=== PATIENT | male | born 1945 | race Caucasian/White ===

== ENCOUNTER → 2018-11-27 | Outpatient (CLI) | payer MEDICARE, BC ==
[~2018-11-27] MED LIST: ASPI81CH PO; ATOR10 PO; Alprazolam0.5 MG PO; ESOM20; METPHE18ER PO; METPRE4DP PO; Percocet 5-3251 EACH PO; Robaxin500 MG PO
[2018-12-01 13:07] LABS: M-SPIKE, % Not Observed % (Not Observed); PROTEIN,TOTAL,URINE 7.5 mg/dL (Not Estab.)
== END | disposition home or self-care (01) ==
LOC: OLS 09:45 → LAB SHORT 09:45
PROVIDERS: Internal Medicine
DX: Z00.01 Encounter for general adult medical examination with abnormal findings (principal); R53.81 Other malaise
CPT/HCPCS: 81050; 84166; 86335

== ENCOUNTER 2019-02-11 07:41 | Day surgery (SDC) | payer MEDICARE, BC ==
[~2019-02-11] VITALS: Ht 175.3 cm; Wt 77.7 kg
[~2019-02-11 07:41] MED LIST changes: +ACET500 PO; +ALPR1 PO; -Alprazolam0.5 MG PO; +ESOMEPRAZOLE MA40 MG PO; +METO25ER PO; +NAPR220 PO; +NITR.4SL SL; +VITAMIN D-32000 UNIT PO; +VOLTAREN100 GM TOP
--- NOTE | 2019-02-11 11:14 | NUR ---
TR BAND DEFLATED, REMAINS ON RIGHT WRIST NO AIR IN. WILL MONITOR SITE FOR BLEEDING. PT DENIES PAIN OR SOB, DENIES ANY NEEDS AT THIS TIME. AT BEDSIDE. VSS. CALL LIGHT IN REACH.
--- NOTE | 2019-02-11 11:37 | NUR ---
TR BAND REMAINS ON RIGHT WRIST, NO AIR IN. PT AMBULATES TO RESTROOM WITH STEADY GAIT, UNMEASURED VOID. GETS DRESSED WITH ASSISTANCE FROM . EVERETT GODDARD RN REVIEWING DISCHARGE INSTRUCTIONS WITH PT AND HIS . RADIAL SITE APPEARS TO BE WNL.
--- NOTE | 2019-02-11 11:45 | NUR ---
IV DC'D, CATH INTACT. PT AND SPOUSE VERBALIZED UNDERSTANDING OF DC INSTRUCTIONS AND FOLLOW UP INFO. DENIES ANY DISCOMFORT AT TIME OF DISCHARGE. WILL FOLLOW UP INSTRUCTED BY DR MORGAN WITH CARDIAC SURGEON. OUT TO CAR VIA W/C. SPLINT AND SLING IN PLACE ON RIGHT ARM.
== END 2019-02-11 12:05 | disposition home or self-care (01) ==
LOC: MHTC 07:41
PROC: 4A023N7 Measurement of Cardiac Sampling and Pressure, Left Heart, Percutaneous Approach (ICD-10-PCS; principal; 2019-02-11)
PROC: B201YZZ Plain Radiography of Multiple Coronary Arteries using Other Contrast (ICD-10-PCS; principal; 2019-02-11)
DX: I25.10 Atherosclerotic heart disease of native coronary artery without angina pectoris (principal); I10 Essential (primary) hypertension; K21.9 Gastro-esophageal reflux disease without esophagitis; E78.5 Hyperlipidemia, unspecified; E78.00 Pure hypercholesterolemia, unspecified; Z82.49 Family history of ischemic heart disease and other diseases of the circulatory system; Z79.899 Other long term (current) drug therapy; Z79.82 Long term (current) use of aspirin
CPT/HCPCS: 93005; 93010; 93454; 99152; 99153; C1769; C1894; J1644; J2250; J3010; J7030; Q9967

== ENCOUNTER 2019-03-09 08:40 | Emergency (ER) | payer MEDICARE, BC ==
[~2019-03-09] VITALS: Ht 175.3 cm; Wt 76.7 kg
[2019-03-09] MEDS ORDERED: CLOP75 PO (09:07)
[2019-03-09] MEDS ORDERED: ROXICODONE5 MG PO (09:08)
[2019-03-09] MEDS ORDERED: MULTI-VITAMIN1 EAC2 PO (09:10)
[2019-03-09] MEDS ORDERED: MAGNESIUM PO (09:10)
[2019-03-09] MEDS ORDERED: UNISOM25 MG PO (09:11)
[2019-03-09] MEDS ORDERED: Norco 5-325 Ta1 EACH PO (09:49)
== END 2019-03-09 10:08 | disposition home or self-care (01) ==
LOC: ER 08:40
DX: M25.561 Pain in right knee (principal); M79.661 Pain in right lower leg; K21.9 Gastro-esophageal reflux disease without esophagitis; I25.10 Atherosclerotic heart disease of native coronary artery without angina pectoris; Z88.8 Allergy status to other drugs, medicaments and biological substances; Z79.899 Other long term (current) drug therapy; Z79.82 Long term (current) use of aspirin; Z95.1 Presence of aortocoronary bypass graft
CPT/HCPCS: 93971; 99283-25

== ENCOUNTER 2019-05-05 09:35 | Day surgery (SDC) | payer MEDICARE, BC ==
[~2019-05-05] VITALS: Ht 175.3 cm; Wt 72.1 kg
[~2019-05-05 09:35] MED LIST changes: +Aspirin EC81 MG PO; +CLOP75 PO; +MAGNESIUM PO; +MULTI-VITAMIN1 EAC2 PO; +Norco 5-325 Ta1 EACH PO; +ROXICODONE5 MG PO; +UNISOM25 MG PO
--- NOTE | 2019-05-05 11:06 | NUR ---
05/05/19 1106 Steph Davalos 2.5ML NORMAL SALINE USED TO ELEVATE HEPATIC FLEXURE POLYP
== END 2019-05-05 11:35 | disposition home or self-care (01) ==
LOC: ORSCSDS 09:35
PROVIDERS: Internal Medicine Gastroenterology
PROC: 0DBK8ZX Excision of Ascending Colon, Via Natural or Artificial Opening Endoscopic, Diagnostic (ICD-10-PCS; principal; 2019-05-05 11:00)
PROC: 0DBL8ZX Excision of Transverse Colon, Via Natural or Artificial Opening Endoscopic, Diagnostic (ICD-10-PCS; principal; 2019-05-05 11:00)
PROC: 0DBN8ZX Excision of Sigmoid Colon, Via Natural or Artificial Opening Endoscopic, Diagnostic (ICD-10-PCS; principal; 2019-05-05 11:00)
DX: Z12.11 Encounter for screening for malignant neoplasm of colon (principal); D12.3 Benign neoplasm of transverse colon; K63.5 Polyp of colon; K57.30 Diverticulosis of large intestine without perforation or abscess without bleeding; K64.8 Other hemorrhoids; Z86.010 Personal history of colon polyps; K75.81 Nonalcoholic steatohepatitis (NASH); K22.70 Barrett's esophagus without dysplasia; I25.10 Atherosclerotic heart disease of native coronary artery without angina pectoris; Z79.82 Long term (current) use of aspirin; Z79.899 Other long term (current) drug therapy
CPT/HCPCS: 88305; J2704; J7120

== ENCOUNTER 2021-09-15 07:48 | Day surgery (SDC) | payer MEDICARE, BC | END 2021-09-15 23:11 | disposition home or self-care (01) | LOC: CT 07:48 | DX: I25.10 Atherosclerotic heart disease of native coronary artery without angina pectoris (principal); I25.84 Coronary atherosclerosis due to calcified coronary lesion; K21.9 Gastro-esophageal reflux disease without esophagitis; M19.90 Unspecified osteoarthritis, unspecified site; I10 Essential (primary) hypertension; E78.5 Hyperlipidemia, unspecified; I35.0 Nonrheumatic aortic (valve) stenosis; Z95.1 Presence of aortocoronary bypass graft | CPT/HCPCS: 75574; Q9967 ==

== ENCOUNTER 2022-06-07 07:15 | Day surgery (SDC) | payer MEDICARE, BC ==
[~2022-06-07] VITALS: Ht 177.8 cm; Wt 86.5 kg
--- NOTE | 2022-06-07 10:29 | NUR ---
06/07/22 1029 KATY PRATT PT FELT DROWSY IN SD ASSISTED PT DRESSING/ RN STAYED IN ROOM; PT WAS ABLE TO DEMONSTRATE ABILITY TO STAND AND WALK IN ROOM TO PRIOR TO DC. PT STATED READINESS TO DC.
== END 2022-06-07 10:20 | disposition home or self-care (01) ==
LOC: ORSCSDS 07:15
DX: Z12.11 Encounter for screening for malignant neoplasm of colon (principal); Z86.010 Personal history of colon polyps; D12.2 Benign neoplasm of ascending colon; D12.3 Benign neoplasm of transverse colon; K57.30 Diverticulosis of large intestine without perforation or abscess without bleeding; K64.4 Residual hemorrhoidal skin tags; Z79.899 Other long term (current) drug therapy
CPT/HCPCS: 88305; J2704; J7120

== ENCOUNTER → 2024-10-15 | Outpatient (CLI) | payer MEDICARE, BC | LOC: LAB 07:13 → LAB SHORT 07:13 | DX: D49.0 Neoplasm of unspecified behavior of digestive system (principal) | CPT/HCPCS: 88173 ==

== ENCOUNTER 2024-10-19 13:33 | Emergency (ER) | payer MEDICARE, BC ==
[~2024-10-19] VITALS: Ht 175.3 cm; Wt 83.9 kg
[2024-10-19 13:55] VITALS: BP 156/93
[2024-10-19] MEDS ORDERED: Ondansetron HCl 2 MG / ML 2ML Vial IV PRN (14:00)
[2024-10-19 14:34] LABS: BASOPHILS ABSOLUTE AUTO 0.05 K/mm3 (0.00-0.23); BASOPHILS PERCENT AUTO 1 % (0-2); EOSINOPHILS ABSOLUTE AUTO 0.19 K/mm3 (0.00-0.68); EOSINOPHILS PERCENT AUTO 3 % (0-6); Hematocrit 38.3 % (37.0-53.0); Hemoglobin 13.8 g/dL (13.5-17.5); IMMATURE GRAN ABSOLUTE AUTO 0.03 K/mm3 (0.00-0.10); IMMATURE GRAN PERCENT AUTO 0 % (0-1); LYMPHOCYTES ABSOLUTE AUTO 1.13 K/mm3 (0.84-5.20); LYMPHOCYTES PERCENT AUTO 15 % (21-46); MONOCYTES ABSOLUTE AUTO 0.58 K/mm3 (0.16-1.47); MONOCYTES PERCENT AUTO 8 % (4-13); Mean Corpuscular HGB Conc 36.0 g/dL (31.5-36.5); Mean Corpuscular Volume 93 fL (80-100); NEUTROPHILS ABSOLUTE AUTO 5.46 K/mm3 (1.96-9.15); NEUTROPHILS PERCENT AUTO 73 % (41-73); NRBC ABSOLUTE 0.00 K/mm3 (0.00-0.02); NRBC Auto 0.0 /100 WBC (0.0-0.2); Platelet Count 188 K/mm3 (150-400); RDW Coefficient Variation 12.7 % (11.7-14.2); RDW Standard Deviation 43.6 fL (35.1-46.3)
[2024-10-19 15:11] LABS: Alanine Aminotransfer (ALT/SGP 26.0 U/L (12-78); Albumin, Blood 3.2 g/dL (3.4-5.0); Albumin/Globulin Ratio 1.0 (0.8-1.8); Anion Gap 8.0 mmol/L (3-11); Aspartate Aminotrans (AST/SGOT 20.0 U/L (12-37); Bilirubin, Total 0.5 mg/dL (0.1-1.0); Blood Urea Nitrogen 13.0 mg/dL (8-24); CO2, Blood 25.0 mmol/L (21-32); Calcium, Blood 8.4 mg/dL (8.5-10.1); Chloride, Blood 109.0 mmol/L (98-108); Creatinine, Blood 0.77 mg/dL (0.60-1.20); Globulin, Blood 3.1 g/dL (2.2-4.0); Glucose, Blood 103.0 mg/dL (70-99); Potassium, Blood 3.9 mmol/L (3.5-5.5); Sodium, Blood 138.0 mmol/L (136-145); Total Protein, Blood 6.3 g/dL (6.4-8.2)
== END 2024-10-19 16:58 | disposition home or self-care (01) ==
LOC: ER 13:33
PROVIDERS: Student in an Organized Health Care Education/Training Program
DX: R07.9 Chest pain, unspecified (principal); Z79.82 Long term (current) use of aspirin; Z79.899 Other long term (current) drug therapy
CPT/HCPCS: 71046; 80053; 83690; 84484; 85025; 93005; 93010; 99285-25; J2405

== ENCOUNTER → 2024-11-10 | Outpatient (CLI) | payer MEDICARE, BC ==
[~2024-11-10] MED LIST changes: +AMOCLA875 PO; -ATOR10 PO; +ATOR40TA PO; +CHONDROITIN SULFATE PO; +EUTHYROX50 MCG PO; +GENICIN500 M1 PO; +LEVE500 PO; +TAMS.4ER PO; -VITAMIN D-32000 UNIT PO; +Vitamin D1000 UNI1 PO
== END | disposition home or self-care (01) ==
LOC: LAB SHORT 09:10 → LAB 09:10
DX: D49.0 Neoplasm of unspecified behavior of digestive system (principal); R59.9 Enlarged lymph nodes, unspecified
CPT/HCPCS: 88173

== ENCOUNTER 2024-11-13 09:02 | Observation (INO) | payer MEDICARE, BC ==
[~2024-11-13] VITALS: Ht 172.7 cm; Wt 87.1 kg
[2024-11-13] VITALS (21 sets, daily range): BP systolic 103–197; BP diastolic 46–85
[2024-11-13] MEDS ORDERED: FentaNYL Citrate 50 MCG/ML 2 ML Injection IV PRN ×3 (10:50→22:40)
[2024-11-13] MEDS ORDERED: Morphine Sulfate 4 MG/1 ML Injection IV PRN (10:50)
[2024-11-13] MEDS ORDERED: HYDROmorphone HCl/Pf 1MG SYR IV PRN (10:50)
[2024-11-13] MEDS ORDERED: Bacitracin Zinc Oint 1GRAM UD Packet ONE (11:06)
[2024-11-13] MEDS ORDERED: EPINEPhrine HCl 1 MG / ML 30ML Vial ONE (11:06)
--- NOTE | 2024-11-13 11:14 | NUR ---
PATIENT GAVE JEWELRY TO HIS , SANDRINE, FOR SAFE KEEPING. AT BEDSIDE WITH PATIENT IN DAY SURGERY.
[2024-11-13] MEDS ORDERED: FentaNYL Citrate 50 MCG/ML 5 ML Injection ONE ×2 (11:27→12:37)
[2024-11-13] MEDS ORDERED: Rocuronium Bromide 10 MG/ML 5ML Injection IV ONE (11:28)
[2024-11-13] MEDS ORDERED: Ondansetron HCl 2 MG / ML 2ML Vial ONE (11:28)
[2024-11-13] MEDS ORDERED: Metoclopramide HCl 5MG / ML 2ML Vial ONE (11:28)
[2024-11-13] MEDS ORDERED: EpiNEPhrine 1 MG/1 ML 1ML Vial ONE (11:45)
--- NOTE | 2024-11-13 12:18 | NUR ---
Met with Spouse in a waiting area. Facilitated an update and listened with empathetic and pastoral care. Confirmed Pt. is in surgery with nursing staff. Will follow up with family and remain available.
[2024-11-13] MEDS ORDERED: Phenylephrine HCl 10mg/ml 1 ml Vial ONE (12:21)
--- NOTE | 2024-11-13 13:15 | NUR ---
11/13/24 131Effie Clifton EPI 1 MG MIXED WITH 100 ML NACL BY ANESTHESIA, 5 ML OF SOLUTION INJECTED BY DR ROMAN
[2024-11-13] MEDS ORDERED: HydrALAZINE HCl 20 MG / ML 1ML Vial ONE ×2 (15:46→15:50)
[2024-11-13] MEDS ORDERED: HYDROmorphone HCl/Pf 1MG SYR ONE (15:55)
[2024-11-13] MEDS ORDERED: Labetalol HCL 5 MG/ML 4ML Injection (Single Dose) IV PRN (15:55)
[2024-11-13] MEDS ORDERED: HydrALAZINE HCl 20 MG / ML 1ML Vial IV PRN (15:55)
[2024-11-13] MEDS ORDERED: FentaNYL Citrate 50 MCG/ML 2 ML Injection ONE (16:19)
--- NOTE | 2024-11-13 17:49 | NUR ---
POST OP/POSSIBLE SEIZURE EPISODE: REPORT RECEIVED FROM [employer] VICE PRESIDENTFRANCK. PT TO UNIT AT ABOUT 1630. PT A/O, ON [facility], FOLLOWING DIRECTIONS. [employer] VICE PRESIDENTMARKUS LEAL ASKED PT TO CROSS ARMS FOR TRANSFERING FROM [facility] AND PT PUT L ARM UP AND THEN L ARM BECAME RIDGID PER MARKUS AND PT STARED UP AT THE CEILING, UNRESPONSIVE TO MARKUS FOR ABOUT 5 SECONDS. AFTER 5 SECONDS, PT ARMS THEN RELAXED AND PT RESPONSIVE. PT A/O, PUPILS REACTIVE AND PIN POINT. FOLLOWED COMMANDS AND DENIED HEADACHE. VSS. DR. ROMAN NOTIFIED AND PLANS FOR HOSPITALIST CONSULT. PT FAMILY NOTIFIED OF THE EPISODE AND CONSULT WELL
[2024-11-13] MEDS ORDERED: Ondansetron HCl 2 MG / ML 2ML Vial IV PRN (18:25)
--- NOTE | 2024-11-13 18:35 | NUR ---
Pt. is awake in bed post-surgery. Family and friends are present at bedside. Pt. displays evidence of great discomfort but is very and welcomes my visit. This health and physical education professor kept the visit brief. Prayed for further recovery for the Pt. Family requested giving an update to the [facility]. Communication to the [facility] care team was made.
[2024-11-13 19:53] LABS: BASOPHILS ABSOLUTE AUTO 0.02 K/mm3 (0.00-0.23); BASOPHILS PERCENT AUTO 0 % (0-2); EOSINOPHILS ABSOLUTE AUTO 0.01 K/mm3 (0.00-0.68); EOSINOPHILS PERCENT AUTO 0 % (0-6); Hematocrit 39.8 % (37.0-53.0); Hemoglobin 14.1 g/dL (13.5-17.5); IMMATURE GRAN ABSOLUTE AUTO 0.05 K/mm3 (0.00-0.10); IMMATURE GRAN PERCENT AUTO 0 % (0-1); LYMPHOCYTES ABSOLUTE AUTO 0.61 K/mm3 (0.84-5.20); LYMPHOCYTES PERCENT AUTO 5 % (21-46); MONOCYTES ABSOLUTE AUTO 0.89 K/mm3 (0.16-1.47); MONOCYTES PERCENT AUTO 7 % (4-13); Mean Corpuscular HGB Conc 35.4 g/dL (31.5-36.5); Mean Corpuscular Volume 94 fL (80-100); NEUTROPHILS ABSOLUTE AUTO 11.79 K/mm3 (1.96-9.15); NEUTROPHILS PERCENT AUTO 88 % (41-73); NRBC ABSOLUTE 0.00 K/mm3 (0.00-0.02); NRBC Auto 0.0 /100 WBC (0.0-0.2); Platelet Count 197 K/mm3 (150-400); RDW Coefficient Variation 12.9 % (11.7-14.2); RDW Standard Deviation 44.5 fL (35.1-46.3)
[2024-11-13 20:17] LABS: Alanine Aminotransfer (ALT/SGP 48.0 U/L (12-78); Albumin, Blood 3.4 g/dL (3.4-5.0); Albumin/Globulin Ratio 1.1 (0.8-1.8); Anion Gap 8.0 mmol/L (3-11); Aspartate Aminotrans (AST/SGOT 33.0 U/L (12-37); Bilirubin, Total 0.6 mg/dL (0.1-1.0); Blood Urea Nitrogen 20.0 mg/dL (8-24); CO2, Blood 27.0 mmol/L (21-32); Calcium, Blood 8.3 mg/dL (8.5-10.1); Chloride, Blood 107.0 mmol/L (98-108); Creatinine, Blood 1.03 mg/dL (0.60-1.20); Globulin, Blood 3.0 g/dL (2.2-4.0); Glucose, Blood 176.0 mg/dL (70-99); Magnesium, Blood 1.6 mg/dL (1.6-2.4); Potassium, Blood 3.9 mmol/L (3.5-5.5); Sodium, Blood 138.0 mmol/L (136-145); Total Protein, Blood 6.4 g/dL (6.4-8.2)
[2024-11-13] MEDS ORDERED: Cholecalciferol 1000 Unit Tablet (=25MCG) PO SCH (21:00)
--- NOTE | 2024-11-13 22:30 | NUR ---
PT C/O INCREASED PAIN. MEDICATED PER EMAR W/O RELIEF. HOSPITALIST NOTIFIED OBTAINED ORDERS.
--- NOTE | 2024-11-14 01:00 | NUR ---
PT BRIEFLY DESATURATED 86% AFTER PAIN MEDICATION ADMINISTRATION AT 0004. PLACED PT ON 2L VIA NC AND PT SPO2 95%. CONITUOUS PULSE IN PLACE.
[2024-11-14 03:05] VITALS: BP 124/73
--- NOTE | 2024-11-14 05:14 | NUR ---
SHIFT SUMMARY POD#1 FOR RIGHT PAROTIDECTOMY; SKIN GLUE IN PLACE AND 2X RAUL DRAINS PATENT. PT WITH MODERATE TO SEVERE PAIN THROUGHOUT SHIFT AND MEDICATED PER EMAR AFTER CONTACTING PROVIDER FOR ADDITIONAL PAIN MEDICATION. PT STILL REQUIRED IV PAIN MEDICATIONS. PT WAS PLACED ON 2L O2 VIA NC (SEE PREVIOUS NOTE). CONTINUOUS BIOX IN PLACE PER PROTOCOL. PT VOIDING IN URINAL IN BED.
[2024-11-14 05:42] LABS: BASOPHILS ABSOLUTE AUTO 0.02 K/mm3 (0.00-0.23); BASOPHILS PERCENT AUTO 0 % (0-2); EOSINOPHILS ABSOLUTE AUTO 0.00 K/mm3 (0.00-0.68); EOSINOPHILS PERCENT AUTO 0 % (0-6); Hematocrit 37.3 % (37.0-53.0); Hemoglobin 13.1 g/dL (13.5-17.5); IMMATURE GRAN ABSOLUTE AUTO 0.08 K/mm3 (0.00-0.10); IMMATURE GRAN PERCENT AUTO 1 % (0-1); LYMPHOCYTES ABSOLUTE AUTO 0.75 K/mm3 (0.84-5.20); LYMPHOCYTES PERCENT AUTO 7 % (21-46); MONOCYTES ABSOLUTE AUTO 1.04 K/mm3 (0.16-1.47); MONOCYTES PERCENT AUTO 10 % (4-13); Mean Corpuscular HGB Conc 35.1 g/dL (31.5-36.5); Mean Corpuscular Volume 97 fL (80-100); NEUTROPHILS ABSOLUTE AUTO 9.08 K/mm3 (1.96-9.15); NEUTROPHILS PERCENT AUTO 83 % (41-73); NRBC ABSOLUTE 0.00 K/mm3 (0.00-0.02); NRBC Auto 0.0 /100 WBC (0.0-0.2); Platelet Count 182 K/mm3 (150-400); RDW Coefficient Variation 13.1 % (11.7-14.2); RDW Standard Deviation 46.7 fL (35.1-46.3)
[2024-11-14 06:02] LABS: Alanine Aminotransfer (ALT/SGP 49.0 U/L (12-78); Albumin, Blood 3.0 g/dL (3.4-5.0); Albumin/Globulin Ratio 1.0 (0.8-1.8); Anion Gap 7.0 mmol/L (3-11); Aspartate Aminotrans (AST/SGOT 114.0 U/L (12-37); Bilirubin, Total 0.6 mg/dL (0.1-1.0); Blood Urea Nitrogen 15.0 mg/dL (8-24); CO2, Blood 27.0 mmol/L (21-32); Calcium, Blood 8.1 mg/dL (8.5-10.1); Chloride, Blood 106.0 mmol/L (98-108); Creatinine, Blood 0.83 mg/dL (0.60-1.20); Globulin, Blood 2.9 g/dL (2.2-4.0); Glucose, Blood 147.0 mg/dL (70-99); Magnesium, Blood 1.9 mg/dL (1.6-2.4); Potassium, Blood 3.7 mmol/L (3.5-5.5); Sodium, Blood 136.0 mmol/L (136-145); Total Protein, Blood 5.9 g/dL (6.4-8.2)
--- NOTE | 2024-11-14 06:50 | NUR ---
EXTENDED RECOVERY PROCESS INTERVENTION LOCKED DUE TO COMPUTER ISSUE; FOCUSED POST OP IN PLACE INSTEAD; CHARGE NURSE AWARE.
[2024-11-14 07:54] VITALS: BP 106/69
[2024-11-14 15:06] VITALS: BP 120/75
--- NOTE | 2024-11-14 15:14 | NUR ---
dISCHARGE INSTRUCT REVIEWED. STATED UNDERSTANDING. DISCHARGED TO POV WITH PRINTED INSTRUCT.
== END 2024-11-14 15:43 | disposition home or self-care (01) ==
LOC: UNDOADMOB 09:02 → SURS 09:02
PROVIDERS: Student in an Organized Health Care Education/Training Program; ADMIT Otolaryngology
PROC: 0CT80ZZ Resection of Right Parotid Gland, Open Approach (ICD-10-PCS; principal; 2024-11-13 10:30)
PROC: 07T10ZZ Resection of Right Neck Lymphatic, Open Approach (ICD-10-PCS; principal; 2024-11-13 10:30)
DX: C07 Malignant neoplasm of parotid gland (principal); C77.0 Secondary and unspecified malignant neoplasm of lymph nodes of head, face and neck; I25.10 Atherosclerotic heart disease of native coronary artery without angina pectoris; K21.9 Gastro-esophageal reflux disease without esophagitis; Z79.899 Other long term (current) drug therapy; Z88.8 Allergy status to other drugs, medicaments and biological substances; Z95.1 Presence of aortocoronary bypass graft; Z90.49 Acquired absence of other specified parts of digestive tract
CPT/HCPCS: 36415; 80053; 83735; 85025; 86850; 86900; 86901; 88305; 88307; 94762; 96374; 96375; 96376; A9270; G0378; J0165; J0169; J0360; J1171; J2371; J2405; J2704; J2765; J3010; J7120